=== PATIENT | female | born 1970 | race African-American/Black ===

== ENCOUNTER 2024-07-02 08:22 | Emergency (ER) | payer OTHER ==
[~2024-07-02] VITALS: Ht 162.6 cm; Wt 67.0 kg
[2024-07-02 08:26] VITALS: O2SAT 99
[2024-07-02 08:33] VITALS: BP 164/56; PULSE 83; RESP 16; TEMP 98.5; O2SAT 100
[2024-07-02] MEDS ORDERED: DICYCLOMINE 10 MG/5 ML ORAL SYR PO STA (08:59)
[2024-07-02 09:13] LABS: CHLORIDE 110 mEq/L (98-107); POTASSIUM 3.9 mEq/L (3.5-5.1); SODIUM 142 mEq/L (136-145)
[2024-07-02 09:14] LABS: CARBON DIOXIDE 24 mEq/L (21-32)
[2024-07-02 09:15] LABS: CALCIUM 9.2 mg/dL (8.7-10.4)
[2024-07-02 09:20] LABS: GLUCOSE 107 mg/dL (70-105); UREA NITROGEN BLOOD 10 mg/dL (9-23)
[2024-07-02 09:26] LABS: BASOPHILS % 0.7 % (0.0-2.0); EOSINOPHILS % 1.3 % (0.0-5.0); HEMATOCRIT. 39.1 % (36.0-48.0); HEMOGLOBIN. 12.8 g/dL (12.0-16.0); LYMPHOCYTES % 31.6 % (20.0-50.0); MEAN CORPUSCULAR HEMOGLOBIN 31.6 pg (28.0-32.0); MEAN CORPUSCULAR HGB CONC 32.6 g/dL (31.0-37.0); MEAN CORPUSCULAR VOLUME 96.9 fL (81.0-99.0); MEAN PLATELET VOLUME 8.7 fl (7.4-10.4); NEUTROPHILS % 60.4 % (40.0-76.0); PLATELET 334 x1000/uL (130-400); RED BLOOD CELL COUNT 4.04 mill/uL (4.2-5.4); RED CELL DISTRIBUTION WIDTH 15.2 % (11.6-14.6); WHITE BLOOD COUNT 5.6 x1000/uL (4.5-11.0)
[2024-07-02 10:30] LABS: CLARITY URINE CLEAR (CLEAR); COLOR URINE YELLOW (YELLOW); GLUCOSE URINE NEGATIVE (NEGATIVE); KETONES URINE TRACE (NEGATIVE); LEUKOCYTE ESTERASE URINE NEGATIVE (NEGATIVE); NITRITE URINE NEGATIVE (NEGATIVE); OCCULT BLOOD URINE NEGATIVE (NEGATIVE); PROTEIN URINE TRACE (NEGATIVE); SPECIFIC GRAVITY URINE 1.023 (1.005-1.030)
[2024-07-02] MEDS: DICYCLOMINE HCL 10MG CAPSULE PO NR (10:38)
[2024-07-02] MEDS: ONDANSETRON 4MG ODT PO STA (10:38)
[2024-07-02] MEDS: MAGNESIUM/ALUMINUM HYDROXIDE/SIMETHICONE 30ML UDC PO STA (10:38)
[2024-07-02 11:20] LABS: BACTERIA URINE 3+; SQUAMOUS EPITHELIAL CELL URINE 3+ /lpf (RARE/1+)
[2024-07-02 11:21] LABS: RBC URINE 0-2 /hpf (0-2); WBC URINE 0-2 /hpf (0-2)
[2024-07-02 11:55] LABS: ALANINE AMINOTRANSFERASE 12 IU/L (10-49); ALBUMIN 4.3 g/dL (3.2-4.8); ASPARTATE AMINOTRANSFERASE 19 IU/L (<34); PROTEIN TOTAL 6.6 g/dL (6.0-8.3)
[2024-07-02 12:07] LABS: BILIRUBIN DIRECT < 0.1 mg/dL (<=3.0); BILIRUBIN TOTAL 0.3 mg/dL (0.1-1.0)
[2024-07-02] MEDS ORDERED: ACETAMINOPHEN 325MG TABLET PO PRN (12:45)
[2024-07-02] MEDS ORDERED: ONDANSETRON HCL 4MG/2ML INJ IV PRN (12:45)
== END 2024-07-02 12:15 | disposition left against medical advice (07) ==
LOC: ER 08:22 → EDBEDREQ 10:31 → ER 12:15 → CANBEDREQ 12:23
DX: R10.9 Unspecified abdominal pain (principal); Z90.710 Acquired absence of both cervix and uterus; Z86.59 Personal history of other mental and behavioral disorders
CPT/HCPCS: 99284; 74176; 80076; 80048; 81003; 83690; 85025; 86850; 86900; 86901; 36415; 93005; Q0162

== ENCOUNTER 2024-09-09 10:20 | Emergency (ER) | payer OTHER ==
[~2024-09-09] VITALS: Ht 165.1 cm; Wt 65.0 kg
[2024-09-09 10:22] VITALS: BP 157/80; PULSE 83; RESP 16; TEMP 36.7; O2SAT 98
[2024-09-09] MEDS ORDERED: LIDOCAINE HCL/PF 1% 10 MG/ML 5ML VIAL INFIL ONE (10:45)
[2024-09-09] MEDS ORDERED: TETANUS, DIPHTHERIA, PERTUSSIS VAC/PF 0.5ML (>10YR OLD) IM ONE (10:45)
[2024-09-09] MEDS ORDERED: IBUP-2029 MT (11:56)
== END 2024-09-09 13:49 | disposition home or self-care (01) ==
LOC: ER 10:20
DX: S01.81XA Laceration without foreign body of other part of head, initial encounter (principal); Z86.59 Personal history of other mental and behavioral disorders; Z90.710 Acquired absence of both cervix and uterus; Z86.73 Personal history of transient ischemic attack (TIA), and cerebral infarction without residual deficits; W18.30XA Fall on same level, unspecified, initial encounter; Y93.89 Activity, other specified; Y92.89 Other specified places as the place of occurrence of the external cause; Y99.8 Other external cause status
CPT/HCPCS: 70450; 70486; 72125; 12013; 99284; J2003; Z7610

== ENCOUNTER 2024-09-17 16:03 | Emergency (ER) | payer OTHER ==
[~2024-09-17] VITALS: Ht 172.7 cm; Wt 72.0 kg
[~2024-09-17 16:03] MED LIST: IBUP-2029 MT
[2024-09-17 16:28] VITALS: BP 147/76; PULSE 91; RESP 18; TEMP 37.1; O2SAT 100
== END 2024-09-17 18:01 | disposition home or self-care (01) ==
LOC: ER 16:03
DX: S05.32XD Ocular laceration without prolapse or loss of intraocular tissue, left eye, subsequent encounter (principal); Z96.649 Presence of unspecified artificial hip joint; Z90.710 Acquired absence of both cervix and uterus; Z86.73 Personal history of transient ischemic attack (TIA), and cerebral infarction without residual deficits; X58.XXXD Exposure to other specified factors, subsequent encounter
CPT/HCPCS: 99281; Z7610 ×2